=== PATIENT | male | born 1965 | race Caucasian/White ===

== ENCOUNTER 2020-06-26 08:45 | Emergency (ER) | payer OTHER, SELFPAY ==
[2020-06-26 08:58] VITALS: BP 157/92; PULSE 85; RESP 20; TEMP 36.4; O2SAT 97
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
== END 2020-06-26 10:25 | disposition short-term general hospital (02) ==
PROVIDERS: Emergency Provider Nurse Practitioner
DX: T23.402D Corrosion of unspecified degree of left hand, unspecified site, subsequent encounter (principal); T23.401D Corrosion of unspecified degree of right hand, unspecified site, subsequent encounter; T32.11 Corrosions involving 10-19% of body surface with 10-19% third degree corrosion; Z87.891 Personal history of nicotine dependence
CPT/HCPCS: 99212; G0463

== ENCOUNTER 2022-05-06 09:24 | Emergency (ER) | payer OTHER, SELFPAY ==
--- NOTE | ~2022-05-06 | XR_ITS ---
XR finger 4th LT min 2V 05/06/2022 09:48 Indication: Left fourth finger injury Procedure: 3 views left fourth finger Comparison: No prior studies for comparison. Findings: There is a minimally displaced tuft fracture left fourth distal phalanx. There is a soft ti ssue laceration dorsal to the fracture. No foreign bodies. 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 Impression: 1: Minimally displaced tuft fracture left fourth distal phalanx. Reviewed, dictated and finalized at location B. Impression: 1: Minimally displaced tuft fracture left fourth distal phalanx.
[2022-05-06 09:31] VITALS: BP 147/79; PULSE 93; RESP 20; TEMP 36.7; O2SAT 99
--- NOTE | 2022-05-06 10:47 | PC.NURSE ---
MD at bedside unable to finish assessment, meds, etc.
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
[2022-05-06 11:16] VITALS: RESP 14
--- NOTE | 2022-05-18 20:12 | PC.NURSE ---
LATE ENTRY This note is being entered to document information to the patient's record. The following information was omitted on [05/06/22], by [Cecilia Puckett]. VORB given for metal finger splint placed on patient.
== END 2022-05-06 12:26 | disposition home or self-care (01) ==
PROVIDERS: Emergency Provider Emergency Medicine
DX: S62.635B Displaced fracture of distal phalanx of left ring finger, initial encounter for open fracture (principal); Z87.891 Personal history of nicotine dependence; W23.0XXA Caught, crushed, jammed, or pinched between moving objects, initial encounter
CPT/HCPCS: 11740; 12001; 29125; 29130; 73140; 99283; 99284